=== PATIENT | female | born 1970 | race Two or more races ===

== ENCOUNTER 2024-12-20 15:09 | Emergency (ER) | payer OTHER, SELFPAY ==
[2024-12-20 15:13] VITALS: BP 158/106
[2024-12-20 15:36] LABS: % Basophils 0.9 % (0-2); % Eosinophils 3.1 % (0-6); % Immature Granulocytes 0.4 % (0-0.5); % Monocytes 6.4 % (1.7-9.3); % Neutrophils 57.2 % (42.2-75.2); Absolute Basophils 0.1 10^3/uL (0-0.2); Absolute Eosinophils 0.2 10^3/uL (0-0.7); Absolute Lymphocytes 1.8 10^3/uL (1.2-3.4); Absolute Monocytes 0.4 10^3/uL (0.1-0.6); Absolute Neutrophils 3.1 10^3/uL (1.4-6.5); Hematocrit 41.7 % (37.0-47.0); Hemoglobin 14.1 g/dL (12.0-16.0); Mean Corp Hgb Conc. 33.8 g/dL (33.0-37.0); Mean Corpuscular Hgb 28.5 pg (27.0-31.0); Mean Corpuscular Volume 84.2 fL (81.0-99.0); Nucleated Red Blood Cells % 0 %; Platelet Count 297 10^3/uL (130-400); Red Blood Cell Count 4.95 10^6/uL (4.20-5.40); Red Cell Dist. Width 13.3 % (11.5-14.5); White Blood Cell Count 5.5 10^3/uL (4.8-10.8)
[2024-12-20 15:43] LABS: INR 1.21; PT 15.6 Sec (11.4-14.6)
[2024-12-20 15:48] LABS: ALT (SGPT) 31 U/L (0-35); AST (SGOT) 25 U/L (14-36); Albumin 4.4 g/dl (3.5-5.0); Alkaline Phosphatase 131 U/L (38-126); Blood Urea Nitrogen 18 mg/dl (7-17); Calcium 9.9 mg/dl (8.4-10.2); Carbon Dioxide 25 mmol/L (22-30); Chloride 107 mmol/L (98-107); Glucose 93 mg/dl (70-99); Potassium 4.1 mmol/L (3.5-5.1); Sodium 143 mmol/L (135-145); Total Bilirubin 0.5 mg/dl (0.2-1.3); Total Protein 7.4 g/dl (6.3-8.2); eGFR > 60.00
[2024-12-20 15:58] LABS: Troponin I < 0.012 ng/ml
--- NOTE | 2024-12-20 16:02 | ED.GENMED ---
History of Present Illness
General
Chief Complaint: Chest Pain
Source: patient and family (Daughter at bedside assisting with translation)
Exam Limitations: none
Time Seen by Provider: 12/20/24 16:00
Nursing documentation reviewed up to this point in time: agreed with
History of Present Illness
History of Present Illness:
Patient is a 54-year-old with history of PE x 2, hypertension, hyperlipidemia presenting to the emergency department with chest pain. Patient states symptoms started around 5 AM and she describes a pressure type pain in her left chest. Later this
afternoon�symptoms seem to radiate into her left scapular region. She denies any sharp or tearing component to pain. She also feels that she cannot take a deep breath. Pain is worse with deep inspiration. No exertional component to symptoms. No
associated fever or cough. No syncopal events. No pain or swelling of lower extremities. No recent travel or recent surgeries. No exogenous hormone use.
Patient takes Xarelto 20 mg daily. However�she states she did not take this medication for the entirety of last week as she 'did not want to '.
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 The second 1 was seen to be provoked by hysterectomy and discontinuation of Xarelto. The etiology of the first PE in 2019 is unknown at this time.
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
Past History
Past History
ED Past Medical History: Hypercholesterolemia and Other (DVT/PE)
ED Past Surgical History: Cholecystectomy, Gynecological and Urological
Social History
Tobacco: Non-smoker
Review of Systems
Review of Systems
Allergies reviewed?: Yes
All Other Systems: ROS reviewed and negative except as documented in HPI and ROS
Phy Exam
Physical Exam
Physical Exam:
Vitals: Hypertensive, otherwise vital signs stable. Afebrile
General: Patient is well appearing, no acute distress
Skin: Warm and dry, no rashes or lesions
Head: Normocephalic, atraumatic
Eyes: Sclera nonicteric. EOMs intact. No nystagmus.
Throat: Protecting airway
Neck: Normal ROM, no cervical spine tenderness, no meningismus. No JVD
Cardiac: Regular rate and rhythm, no murmurs. No reproducible chest wall tenderness.
Pulm: Normal respiratory effort, no wheezes, rales, rhonchi heard on exam.
Abdomen: Abdomen soft and nontender.
Extremities: No evidence of cyanosis or edema. Palpable DP pulse bilaterally. Negative Homans' sign bilaterally
Neuro: AAOx3. Grossly intact.
Psychiatric: Normal affect.
Scores
Heart Score for Chest Pain Patients
STEMI patient?: No
History: Slightly or Non-Suspicious
ECG: Normal
Age: >45 - <65 years
Risk Factors: 1 or 2 Risk Factors
Troponin: </= Normal Limit
Heart Score for Chest Pain Patients: 2
Heart Score Risk: 2.5% MACE over next 6 weeks
Course
Orders/Labs/Results
Orders:
Orders
12/20/24 15:10
Electrocardiogram (*1) Urgent
Reason for Study: Chest Pain
EKG- Treatment ONCE
12/20/24 15:25
Beta HCG Quantitative Urgent
Comment: ADD ON
Complete Blood Count/With Diff Urgent
Comprehensive Metabolic Panel Urgent
Prothrombin Time Urgent
Troponin I Urgent
12/20/24 16:23
CT Chest PE Study Urgent
Comment: hx PE x 2
Reason For Exam: Chest pain, SOB
0.9% Sodium Chloride 1000 ml [Nss] 1,000 ml IV BOLUS
12/20/24 16:27
Add On- LAB Urgent
Tests Added?: serum hcg
12/20/24 18:29
Troponin I Urgent
12/20/24 18:30
Electrocardiogram (*1) Urgent
Reason for Study: Chest Pain
EKG- Treatment ONCE
Abnormal Lab Results
12/20/24
15:25
PT 15.6 H Sec
(11.4-14.6)
BUN 18 H mg/dl
(7-17)
Alkaline Phosphatase 131 H U/L
(38-126)
12/20/24 15:25
12/20/24 15:25
Vital Signs
Initial and Last Documented VS:
Initial Vital Signs
Temp Pulse Resp BP Pulse Ox
98.4 F 90 18 158/106 99
12/20/24 15:13 12/20/24 15:13 12/20/24 15:13 12/20/24 15:13 12/20/24 15:13
Last Documented Vital Signs
Temp Pulse Resp BP Pulse Ox
98.4 F 68 15 136/82 99
12/20/24 15:13 12/20/24 19:15 12/20/24 19:15 12/20/24 19:00 12/20/24 19:15
MDM/Problems Addressed
Differential Diagnosis Includes:
Not limited to: Muscle strain, costochondritis, pleurisy, pulmonary embolism, pneumonia, acute coronary, etc.
MDM/Problems Addressed:
Patient is a 54 year-old female presenting with approximately 12 hours of left chest/scapular pain with history of PE. No fever or cough. No lower extremity swelling or pain. However � patient does report that she did not take her prescribed xarelto
for an entire week about one week ago. Vitals and physical exam as above. Basic labs were initiated in triage, which showed no acute abnormalities. Troponin was undetectable. EKG without acute ischemic changes. Given patient�s history � I would
consider her high risk for pulmonary embolism. Will obtain CTA chest and plan to trend troponin. Patient appears very well and comfortable in no apparent distress on my initial examination.
Update: CTA without any acute findings. No evidence of pulmonary embolism or thoracic aortic dissection. Serial troponins negative x two with non-ischemic EKGs. Patient appears to be in no distress. She remains hemodynamically stable, not hypoxic,
tachycardic, or tacypneic. Symptoms possibly secondary to muscular strain. At this point � very low suspicion for acute cardiac/pulmonary emergent process. Feel stable for discharge home With primary care/hematology follow up. Discussed importance
of resuming Xarelto and taking as prescribed. Return precautions discussed. Patient verbalized understanding.
Chronic conditions affecting care:
Hypertension, pulmonary emboli
Acute Exacerbation and/or Progression of Chronic Illness:
N/A
*Radiology
Radiology exam reviewed: radiology read reviewed
*Pulse Oximetry
Patient hypoxic: no
*EKG
Interpreted by ED Provider?: Yes
EKG Intrepretation Date: 12/20/24
Interpretation: normal
Comparison EKG: no changes
Heart Rate: 83
Rate: normal
Rhythm: sinus
[place]: normal axis
Interval: normal interval
QRS Pattern: low voltage
Ischemia: no ischemia
*Linen Room Supervisor Interpretation
Rate: normal
Interpretation: normal
Heart Rate: 82
Rhythm: sinus
*Critical Care Note
Total Time (30-74mins, 75-104mins- exclusive of procedures): Not Applicable
ED Attending Note
-
Portions of this chart may have been created with voice recognition software.� Occasional wrong word or��sound alike� substitutions may have occurred due to the inherent limitations of voice recognition software.
Discharge Plan
Departure
Patient Disposition: Home (Routine Discharge)
Date of Disposition: 12/20/24
Time of Disposition: 19:17
Patient with high blood pressure during this ER visit?: Yes
Condition: Good
Covid-19: Not Applicable
Discharge Problem:
Chest pain
Instructions: BLOOD PRESSURE, Chest Pain
Prescriptions:
No Action
hydrocodone-acetaminophen 5-325 mg tablet
1 tab PO Q6H PRN (Reason: pain) Qty: 10 0RF
prochlorperazine maleate [Compazine] 10 mg tablet
10 mg PO Q8H PRN (Reason: nausea and vomiting) Qty: 20 0RF
Referrals:
PRIVATE,PHYSICIAN [Family Provider] - Follow up in 5-7 days
Activity Restrictions/Additional Instructions:
Return to the emergency department with any worsening/persistent chest pain or shortness of breath, swelling or pain in lower leg, severe back pain, episodes of fainting/passing out, worsening in current symptoms, or any other concerns
-As discussed�your CT scan showed no evidence of pulmonary embolism today.
-It is important to stay well-hydrated. Take Tylenol as needed for pain.
-As discussed/it is very important that you continue to take your Xarelto as prescribed.
-Follow-up with your primary care for further evaluation/management and to ensure that symptoms are improving. You should keep your scheduled appointment with hematology for next month.
Monitor your symptoms closely and return to the emergency department with any acute worsening/new symptoms or any other concerns
Interventions
Interventions:
*Risk Screen - Suicide Last Done: 12/20/24 15:13
*General Assessment Last Done: 12/20/24 15:13
*Neglect/Abuse Screening Last Done: 12/20/24 15:13
*ED- Fall Risk Assessment Last Done: 12/20/24 19:26
*ED COVID-19 Vaccine History Last Done: 12/20/24 16:33
*Nursing Disposition Last Done: 12/20/24 19:26
ED- Cardiac Assessment Last Done: 12/20/24 16:14
Discharge Date and Time
Discharge Date/Time: 12/20/24 19:27
Print Language: BERMUDIAN
[2024-12-20] MEDS: NSS 1000 IV (16:33)
[2024-12-20 17:00] VITALS: BP 155/90
[2024-12-20 17:50] VITALS: BP 164/87
[2024-12-20 18:00] VITALS: BP 150/84
[2024-12-20 18:04] LABS: Beta HCG Quantitative < 2.39 mIU/ml
[2024-12-20 18:58] LABS: Troponin I < 0.012 ng/ml
[2024-12-20 19:00] VITALS: BP 136/82
== END 2024-12-20 19:27 | disposition home or self-care (01) ==
LOC: EMR 15:09
PROVIDERS: Physician Assistant; EMERGENCY PHYSICIAN Emergency Medicine
DX: R07.89 Other chest pain (principal); R06.02 Shortness of breath; I10 Essential (primary) hypertension; Z86.711 Personal history of pulmonary embolism; E78.00 Pure hypercholesterolemia, unspecified; Z91.128 Patient's intentional underdosing of medication regimen for other reason; Z79.01 Long term (current) use of anticoagulants; Z86.718 Personal history of other venous thrombosis and embolism; Z90.49 Acquired absence of other specified parts of digestive tract
CPT/HCPCS: 99284; 96360; 71275; 80053; 84484; 84702; 85025; 85610; 93005; Q9967